=== PATIENT | male | born 1935 | race Caucasian/White ===

== ENCOUNTER 2019-07-13 19:32 | Emergency (ER) | payer MEDICARE ==
[2019-07-13 19:39] VITALS: TEMP 97.9
[2019-07-13 19:52] VITALS: BP 160/76; PULSE 60; RESP 18
--- NOTE | 2019-07-13 20:11 | ED ---
General Adult HPI - General Chief complaint: Recheck/Abnormal Lab/Rx Stated complaint: Hypertension Time Seen by Provider: 07/13/19 19:40 Source: patient Mode of arrival: ambulatory Limitations: no limitations - History of Present Illness Initial comments: Dictation was produced using [employer] dictation software. please excuse any grammatical, word or spelling errors. Chief Complaint: 84-year-old male presents with hypertension. History of Present Illness: 84-year-old male presents today with hypertension. Patient was brought in by family members. He had a headache earlier today took a couple tabs of Aleve. Presents today with complete resolution of his headache. Today he checked his blood pressure around the time of his headache is found to be 190 systolic. After taking the Aleve his headache was gone. He checked his blood pressure again still is elevated. Family member is a nurse and they were instructed to bring patient to the emergency department for concerns of a stroke. Patient feels well he denies any headache at this time. Denies any stroke like symptoms. No chest pain shortness of breath, or strokelike symptoms. The ROS documented in this emergency department record has been reviewed and confirmed by me. Those systems with pertinent positive or negative responses have been documented in the HPI. All other systems are other negative and/or noncontributory. PHYSICAL EXAM: General Impression: Alert and oriented x3, not in acute distress HEENT: Normocephalic atraumatic, extra-ocular movements intact, pupils equal and reactive to light bilaterally, mucous membranes moist. Cardiovascular: Heart regular rate and rhythm, S1&S2 audible, no murmurs, rubs or gallops Chest: Lungs clear to auscultation bilaterally, no rhonchi, no wheeze, no rales Abdomen: Bowel sounds present, abdomen soft, non-tender, non-distended, no organomegaly Musculoskeletal: Pulses present and equal in all extremities, no peripheral edema Motor: no focal deficits noted Neurological: CN II-XII grossly intact, no focal motor or sensory deficits noted Skin: Intact with no visualized rashes Psych: Normal affect and mood ED course: 84 y Old male presents with clinical presentation consistent with asymptomatic hypertension. Signs upon arrival showed blood pressure of 184/85, rest of vital signs within acceptable limits. Patient's blood pressure was obtained after patient sat in his gurney for several minutes and improved to 160/76. She has no symptoms to suggest hypertensive emergency or urgency. Patient counseled on last measurements to reduce blood pressure. He does have blood pressure medications that were reviewed. Patient told to follow up with his primary care physician for outpatient management of hypertension. - Related Data Allergies Allergy/AdvReac Type Severity Reaction Status Date / Time No Known Allergies Allergy Verified 07/13/19 19:39 Review of Systems ROS Statement: Those systems with pertinent positive or pertinent negative responses have been documented in the HPI. ROS Other: All systems not noted in ROS Statement are negative. Past Medical History Past Medical History: Atrial Fibrillation, GERD/Reflux, Hyperlipidemia, Hypertension, Prostate Disorder History of Any Multi-Drug Resistant Organisms: None Reported Past Surgical History: Orthopedic Surgery Additional Past Surgical History / Comment(s): sarah knee Past Psychological History: No Psychological Hx Reported Smoking Status: Never smoker Past Alcohol Use History: None Reported Past Drug Use History: None Reported General Exam Limitations: no limitations Course Vital Signs 07/13/19 07/13/19 19:34 19:51 Temperature 97.9 F Pulse Rate 65 60 Respiratory 20 18 Rate Blood Pressure 184/85 160/76 O2 Sat by Pulse 98 96 Oximetry Disposition Clinical Impression: Hypertension Disposition: HOME SELF-CARE Condition: Good Instructions (If sedation given, give patient instructions): Hypertension (ED) Additional Instructions: you presented to the hospital hypertension. Please follow-up with primary care physician for outpatient management of blood pressure. Seek medical attention with chest pain, shortness of breath, severe headache or strokelike symptoms. Please be mindful of your intake including high salt foods, alcohol, Sudafed containing medications etc. Please record your blood pressure after measuring at the same time every day and present that information to your primary care physician and/or engagement mgr. Is patient prescribed a controlled substance at d/c from ED?: No Referrals: Alice Putnam DO [Primary Care Provider] - 1-2 days Time of Disposition: 20:11
== END 2019-07-13 20:19 | disposition home or self-care (01) ==
LOC: EC 19:32
DX: I10 Essential (primary) hypertension (principal)
CPT/HCPCS: 99283